=== PATIENT | male | born 1945 | race Two or more races ===

== ENCOUNTER → 2019-01-06 | Emergency (ER) | payer OTHER ==
[~2019-01-06] VITALS: Ht 160 cm; Wt 59.0 kg
[~2019-01-06] MED LIST: COREG CR10 MG; ISORDIL10 MG; NORVASC2.5 M1; PLAVIX75 MG; SYNTHROID75 MCG; VASOTEC5 MG
== END | disposition left against medical advice (07) ==
LOC: ER 13:16
DX: B34.9 Viral infection, unspecified (principal)

== ENCOUNTER 2020-12-04 07:35 | Outpatient (CLI) | payer OTHER | END 2020-12-04 07:59 | disposition home or self-care (01) | LOC: NUCLEAR 07:35 | PROVIDERS: ATTEND Urology | DX: C61 Malignant neoplasm of prostate (principal); N40.0 Benign prostatic hyperplasia without lower urinary tract symptoms; R97.20 Elevated prostate specific antigen [PSA] | CPT/HCPCS: 78315; A9503 ==

== ENCOUNTER → 2020-12-11 | Outpatient (CLI) | payer OTHER | END | disposition home or self-care (01) | LOC: TOM 07:21 | PROVIDERS: ATTEND Urology | DX: K59.09 Other constipation (principal); Q61.01 Congenital single renal cyst; C61 Malignant neoplasm of prostate; K40.90 Unilateral inguinal hernia, without obstruction or gangrene, not specified as recurrent; N40.0 Benign prostatic hyperplasia without lower urinary tract symptoms; R97.20 Elevated prostate specific antigen [PSA] | CPT/HCPCS: 74178; Q9965 ==

== ENCOUNTER 2021-10-04 08:10 | Outpatient (CLI) | payer OTHER | END 2021-10-04 08:35 | disposition home or self-care (01) | LOC: PPH VACUNA 08:10 | PROVIDERS: ATTEND Emergency Medicine Pediatric Emergency Medicine | DX: Z23 Encounter for immunization (principal) ==

== ENCOUNTER 2023-04-08 13:16 | Outpatient (CLI) | payer OTHER | END 2023-04-08 13:28 | disposition home or self-care (01) | LOC: RAD 13:16 | DX: M54.59 Other low back pain (principal); C61 Malignant neoplasm of prostate; D68.59 Other primary thrombophilia; E78.00 Pure hypercholesterolemia, unspecified; I25.10 Atherosclerotic heart disease of native coronary artery without angina pectoris; E03.8 Other specified hypothyroidism; I11.9 Hypertensive heart disease without heart failure; M06.4 Inflammatory polyarthropathy ==

== ENCOUNTER 2023-07-09 09:09 | Outpatient (CLI) | payer OTHER | END 2023-07-09 09:16 | disposition home or self-care (01) | LOC: RAD 09:09 | DX: I73.9 Peripheral vascular disease, unspecified (principal); M54.59 Other low back pain; C61 Malignant neoplasm of prostate; D68.59 Other primary thrombophilia; E78.00 Pure hypercholesterolemia, unspecified; I25.10 Atherosclerotic heart disease of native coronary artery without angina pectoris; E03.8 Other specified hypothyroidism; I11.9 Hypertensive heart disease without heart failure; M06.4 Inflammatory polyarthropathy ==

== ENCOUNTER 2023-10-16 08:12 | Outpatient (CLI) | payer OTHER | END 2023-10-16 08:15 | disposition home or self-care (01) | LOC: SONOGRAMA 08:12 | PROVIDERS: ATTEND Specialist | DX: K76.0 Fatty (change of) liver, not elsewhere classified (principal); R74.01 Elevation of levels of liver transaminase levels ==

== ENCOUNTER → 2025-05-14 | Emergency (ER) | payer OTHER ==
[~2025-05-14] VITALS: Ht 157.5 cm; Wt 59.0 kg
== END | disposition home or self-care (01) ==
LOC: ER 08:33
DX: S50.812A Abrasion of left forearm, initial encounter (principal); E03.8 Other specified hypothyroidism; I25.10 Atherosclerotic heart disease of native coronary artery without angina pectoris; I25.810 Atherosclerosis of coronary artery bypass graft(s) without angina pectoris